=== PATIENT | male | born 1940 | race Caucasian/White ===

== ENCOUNTER 2016-05-14 12:41 | Inpatient (IN) | payer MEDICARE, OTHER ==
[~2016-05-14] VITALS: Ht 175.3 cm; Wt 96.8 kg
--- NOTE | ~2016-05-14 | OR ---
PATIENT'S NAME: JOCELYN LOPEZ [facility] AGE: 75 Y [address] ROOM: [address] [place] [address] LOCATION: GICU ADMIT DATE: 05/14/2016 OR/Procedure Report DISCHARGE DATE: 05/21/2016 FAMILY PHYSICIAN: Physician, Unknown ATTENDING PHYSICIAN: Faustino Haynes SURGEON: Faustino Haynes DO TITLE I COORDINATOR: DATE OF PROCEDURE: 05/14/2016 REFERRING PHYSICIAN: Dr. Mary Farias. PREOPERATIVE DIAGNOSIS: Ischemic and nonischemic cardiomyopathy with need for epicardial left ventricular lead, status post failed attempt at transvenous placement of left ventricular lead. SECONDARY DIAGNOSES: Include: 1. Chronic atrial tachycardia. 2. Stage V dialysis-dependent renal failure. 3. History of coronary artery disease. POSTOPERATIVE DIAGNOSIS: Ischemic and nonischemic cardiomyopathy with need for epicardial left ventricular lead, status post failed attempt at transvenous placement of left ventricular lead. PROCEDURE PERFORMED: Left anterior thoracotomy with placement of left ventricular lead and connection to existing biventricular implantable cardioverter-defibrillator generator in the right subclavian area. BRIEF HISTORY: Mr. Lopez is a 75-year-old white male with the above-noted diagnosis. On of this week in [place], he underwent an attempt at placement of BiV-ICD. It had to be done via the right subclavian system secondary to his preexisting fistula in the left subclavian system. Dr. Farias spent a long day attempting the LV lead placement. She was successful with the RA and RV leads; however, secondary to tortuosity and right-sided placement, was unable to place the LV lead. He was transferred on Tuesday after dialysis. DESCRIPTION OF PROCEDURE: He has been brought to the operative suite for placement of his LV lead. He was sterilely prepped and draped in the usual fashion for left anterior thoracotomy and intubated. An incision was created in the inframammary crease, and we entered the pericardial space. The heart was grossly enlarged with the apex reaching the lateral chest wall. The patient was status post coronary artery bypass grafting. There was a large amount of adhesive disease from the lungs; however, it was taken down without difficulty. The pericardial sac was opened. The LV lead was placed. It took PATIENT'S NAME: JOCELYN LOPEZ [facility] AGE: 75 Y [address] ROOM: [place] [address] LOCATION: GICU ADMIT DATE: 05/14/2016 OR/Procedure Report DISCHARGE DATE: 05/21/2016 FAMILY PHYSICIAN: Physician, Unknown ATTENDING PHYSICIAN: Faustino Haynes 3 separate positioning to find adequate sensing and pacing, but we were able to achieve waveforms measuring 5.9 mV with an LV threshold of 1.4 V at 0.5 msec with a pacing impedance of 597 ohms. The lead was then tunneled subcutaneously to the right subclavian vein system and connected without difficulty. This incision had been opened. Generator leads were removed. Tunnel was connected to the pocket, the leads and generator were placed back into the pocket, and this incision was closed. Appropriate sensing and BiV pacing was noted. Through a separate stab incision, a 19-Slovak Walt drain was brought through and placed into the pleural space. The intercostal incision was approximated with a single 0 Ethibond. Muscular layers closed with running 0 Vicryl. Skin and soft tissue closed with 4-0 and 2-0 Vicryl respectively. Chest tube was placed to suction. The patient was extubated and transferred to the recovery room in stable condition. DO KAREN CORTEZ/modl /[id number] d: 05/28/16 1729 t: 05/29/16 1141, OPERATIVE SUMMARY
--- NOTE | ~2016-05-14 | DS ---
PATIENT'S NAME: JOCELYN LOPEZ [facility] AGE: 75 Y [address] ROOM: [address] [place], [place] [address] LOCATION: [facility] ADMIT DATE: 05/14/2016 Discharge Summary DISCHARGE DATE: 05/21/2016 FAMILY PHYSICIAN: Physician, Unknown ATTENDING PHYSICIAN: Faustino Tejada SUMMARY DATE OF EXPIRATION: 05/21/2016. HISTORY AND HOSPITAL COURSE: Mr. Lopez was a 75-year-old chronically ill male, who was transferred to [facility] for placement of his LV lead. We took him to surgery on 05/14/2016 and accomplished this without difficulty. Postoperatively, hypotension was his biggest issue along with some hypoxia. He did require BiPAP support and support of his pressure with Jose Antonio-Synephrine. Nephrology followed along. He was dialyzed daily for the first 2 days to get him on a Tuesday, Tuesday, and Tuesday schedule. He was continued to be about 4 kg up. We were able to wean his BiPAP to 4 L of nasal cannula. By day 3, he was still acquiring Jose Antonio-Synephrine, and I proceeded with a workup for adrenal insufficiency and thyroid dysfunction. His thyroid was negative, but his cortisol levels were markedly low. He was initiated on IV Solu-Medrol and oral Florinef, and over the next 2 days, we were able to wean off the Jose Antonio- Synephrine. He was continuing to dialyze. We had initially made plans for transfer on Tuesday to the [facility] bed in [place], but it was felt that we should dialyze him through the weekend and then transfer on Tuesday. On 05/21/2016, he dialyzed without difficulty, was down to 1 L of oxygen, was ambulatory with physical therapy. His Eliquis and Plavix had been restarted as per his home dose. Approximately at 6:00 p.m. on the evening of 05/21/2016, he had a marked increase in his shortness of breath. His weight was still approximately 4 kg up, and he began having small episodes of hemoptysis. BiPAP was initially tried, however, this really did not decrease his work of breathing, and he and I talked and we planned for elective intubation. We did speak with his over the phone as she was in the [place] secondary to a in the family. He was intubated without difficulty. Pressures tolerated it well, and his oxygen saturations matthew markedly. We then began having difficulties with suctioning blood from the tube. It was an atraumatic intubation, and concern by me was felt for possible acute pulmonary embolism. Unfortunately, within about 15 minutes of intubation, he had a code blue arrest with ventricular tachycardia. He was resuscitated by ACLS protocols, and we were able to gain a pulse. He was on the epinephrine drip. Hemoptysis became much more of a significant problem, and he was coded again, and this time could not be resuscitated. We presumably felt that he had an acute pulmonary embolism as his post dialysis and labs drawn from the code showed his potassium to be 4. The patient's family were notified of the . Autopsy was refused, and the patient PATIENT'S NAME: JOCELYN LOPEZ [facility] AGE: 75 Y [address] ROOM: [place] [address] LOCATION: [facility] ADMIT DATE: 05/14/2016 Discharge Summary DISCHARGE DATE: 05/21/2016 FAMILY PHYSICIAN: Physician, Unknown ATTENDING PHYSICIAN: Faustino Tejada on 05/21/2016. FAUSTINO TEJADA DO MCB/modl /[id number] d: 05/28/16 2309 t: 05/29/16 1146, DISCHARGE SUMMARY
--- NOTE | ~2016-05-14 | CON ---
PATIENT'S NAME: JOCELYN LOPEZ [facility] AGE: 75 Y [address] ROOM: [address] [place], [place] [address] LOCATION: GICU ADMIT DATE: 05/14/2016 Consultation DISCHARGE DATE: FAMILY PHYSICIAN: PHYSICIAN, UNKNOWN ATTENDING PHYSICIAN: Faustino Haynes DATE OF CONSULTATION: 05/15/2016 REFERRING PHYSICIAN: BRANDON TANNER REASON FOR CONSULTATION: ESRD, evaluation for the need for renal replacement therapy. HISTORY OF PRESENT ILLNESS: A 75-year-old male patient with history of hypertension for at least 15 years; diabetes since age 28, currently on insulin therapy; coronary artery disease, status post PCI and later CABG in 2013; ESRD, presumably from diabetic nephropathy, currently on chronic in-center hemodialysis as per TTS schedule; recently got admitted at [facility] for PPI placement; however, the procedure becomes complicated, and the patient was transferred here for further management. Nephrology consultation has been called for ESRD management. During my evaluation, although the patient was TTS schedule but got an extra session of dialysis yesterday at the outside hospital for 3 hours for presumed volume overload. We do not know how much ultrafiltrate we opted at that time; however, at night, the patient was hypotensive and has been started on vasopressor support. Currently, blood pressure is in the 90s/50s, does not appear to be overtly volume overloaded. Biochemical parameters are within normal limits. The patient reports frequent intradialytic hypotension at the outpatient dialysis unit, but however, the patient is not on midodrine or any other support for maintaining blood pressure during hemodialysis. The patient denied any chest pain, shortness of breath at this point. No significant pedal edema or orthopnea or PND. Makes about a cup of urine a day. However, denied any urinary symptoms including dysuria, hematuria, or urinary frequency. No nausea, vomiting, or diarrhea. The patient's respiratory status and cardiopulmonary stress seems to be acceptable. REVIEW OF SYSTEMS: GENERAL: No fever. No chills or rigor. HEENT: No sore throat. No sinus congestion. CVS: No chest pain. No exertional shortness of breath. No leg swelling. RESPIRATORY: No shortness of breath. No cough. No wheezing. GENITOURINARY: No pain with urination. No increased frequency. No nocturia. GASTROINTESTINAL: No abdominal pain. No abdominal distention. No nausea or vomiting. NEUROLOGIC: No weakness. No seizures. SKIN: No rash. No itching. ALLERGIES: No seasonal allergy. No hayfever. ENDOCRINE: No heat intolerance. No cold intolerance. PSYCHIATRIC: No sadness. No crying spells. No history of panic attack.PATIENT'S NAME: JOCELYN LOPEZ [facility] AGE: 75 Y [address] ROOM: [address] [address] LOCATION: [facility] ADMIT DATE: 05/14/2016 Consultation DISCHARGE DATE: FAMILY PHYSICIAN: PHYSICIAN, UNKNOWN ATTENDING PHYSICIAN: Faustino Haynes He is getting U he was on used to be a is a I believe stress is high no is he was having CVS is had a high and he was having just is 1 at least once a year evaluated calcified I as well as he I advised he by mouth daily short of breath but he he a he is he is he he he is he is a he is. Will 52 is a to Zi he was a pain a a a is on a is a black eye he PAST SURGICAL HISTORY: 1. PCI in 2013. 2. CABG in 2013. SOCIAL HISTORY: Lives with family. No history of significant alcohol consumption or IV drug abuse. Used to be a former smoker, stopped long time ago. FAMILY HISTORY: Significant family history of diabetes and coronary artery disease in the family in both parents. No significant history of renal failure or CKD. ALLERGIES: MORPHINE, OXYCODONE, AND ACETAMINOPHEN. HOME MEDICATIONS: 1. Tylenol extra-strength 1000 mg p.o. q.4 hours p.r.n. for pain. 2. Allopurinol 300 mg p.o. daily. 3. Eliquis 5 mg p.o. b.i.d. 4. Lipitor 20 mg p.o. q.h.s. 5. Rocaltrol 0.25 mcg capsule p.o. at noon. 6. Clopidogrel 75 mg tablet p.o. daily. 7. Docusate 100 mg p.o. daily p.r.n. for constipation. 8. Doxycycline 100 mg capsule p.o. daily p.r.n. for rash. 9. Famotidine 40 mg tablet p.o. b.i.d. 10. Folic acid 2 mg p.o. daily. 11. Hydrocodone/acetaminophen combination 1 tablet p.o. q.8 hours p.r.n. 12. Metoprolol tartrate 12.5 mg p.o. at q.h.s. 13. Nitroglycerin 0.4 mg sublingual p.r.n. for chest pain. 14. MiraLAX powder 17 g p.o. daily. 15. Ursodiol 300 mg capsule p.o. daily. 16. Vitamin B complex, folic acid, vitamin C, biotin 1 tablet p.o. daily. PATIENT'S NAME: JOCELYN LOPEZ [facility] AGE: 75 Y [address] ROOM: [place] [address] LOCATION: [facility] ADMIT DATE: 05/14/2016 Consultation DISCHARGE DATE: FAMILY PHYSICIAN: PHYSICIAN, UNKNOWN ATTENDING PHYSICIAN: Faustino Haynes PHYSICAL EXAMINATION: VITAL SIGNS: Blood pressure in 90s/50s, pulse 100, respiratory rate 18, temperature 98.1. Saturation 98% to 100% on 2 L. GENERAL: Not in apparent distress. HEENT: No JVD or thyromegaly. CVS: S1, S2 normal, RRR. No murmur, rub, gallop. RESPIRATORY: Bilateral air entry equal. No rales or wheeze. ABDOMEN: Soft, nontender, nondistended. Bowel sounds positive. EXTREMITIES: No cyanosis, clubbing, or jaundice. The left arm has an AV fistula. There is significant bruits and swelling because of AVF. History of placement of a venous catheter in the same arm at an outside hospital. SKIN: No pallor, icterus, cyanosis. PRODUCTION CONTROL PLANNER: No gross findings. LABORATORY STUDIES: CBC, hemoglobin 13.3, WBC 8.3, platelets 75. Chemistry, sodium 136, potassium 5, bicarbonate 20, BUN 38, creatinine 4.6, albumin 2.4. LFT, AST 56, ALT 29, alkaline phosphatase 154, total bilirubin 0.4. INR 1.1. ASSESSMENT AND PLAN: 1. End-stage renal disease, possibly secondary to diabetic nephropathy, currently on in-center hemodialysis, scheduled TTS. Access left arm AV fistula. Got dialyzed yesterday for next assessment for presumed volume overload, however, currently on assessment. The patient is euvolemic, probably a little bit hypovolemic, currently on vasopressor support for maintenance of blood pressure. We do not see any urgent indication either clinically or biochemically to dialyze over the weekend. We will continue to monitor him closely with a repeat renal panel every day. Plan to dialyze on Tuesday tentatively, and we will change to TTS schedule at the time of discharge. 2. Access issue. The patient had a left arm venous catheter placement which also has AV fistula. Now, the left arm is swollen and bruised. We will put some cold compress, and we will try to avoid using the AV fistula for at least the next 24 to 48 hours. The AVF still has some positive bruit and thrill. Hopefully, we will be able to use it on the next dialysis session. 3. Coronary artery disease. Stable currently. Denied any chest pain. Continue home medication. 4. Atrial fibrillation. On chronic anticoagulation with Eliquis. Continue Eliquis at this point. Although the patient is on atrial fibrillation, the patient recently had a PPI placement. 5. Complicated procedure while placement of a permanent pacemaker. The patient got right lead placed at the outside hospital, left lead was placed here by Dr. Haynes. The procedure went smoothly and currently has no complication. We will defer that to the CT surgery for further management. Thank you for allowing me for participating in this patient's care. We will closely monitor the patient's progress along with you. HISEKH DELMER TANNER MD /modl /[id number] There is mild to is a a is sure he d: 05/15/162019 t: 05/17/16 1554, CONSULTATION REPORT
--- NOTE | ~2016-05-14 | HP ---
PATIENT'S NAME: JOCELYN LOPEZ [facility] AGE: 75 Y [address] ROOM: [place] [address] LOCATION: GICU ADMIT DATE: 05/14/2016 History & Physical DISCHARGE DATE: 05/21/2016 FAMILY PHYSICIAN: , Unknown ATTENDING PHYSICIAN: Faustino Tejada DATE OF SERVICE: CHIEF COMPLAINT AND HISTORY: Mr. Lopez is a 75-year-old white male who has a history of nonischemic and ischemic cardiomyopathy. He has been medically managed by guideline-directed medical therapy and was taken to the general production laborer in [facility] in [place] for placement of his BiV-ICD device; however, secondary to his right-sided placement necessitated by his left arm fistula and tortuosity of the access of the coronary sinus, the lead could not be placed transvenously and he was transferred to [facility] for placement of an LV lead. He is prepared for surgery by undergoing dialysis this morning and will be taken to the operative suite this afternoon. PAST MEDICAL HISTORY: Significant for coronary artery disease, status post coronary artery bypass grafting; chronic congestive heart failure; ischemic and nonischemic cardiomyopathy with gross cardiomegaly; severe pulmonary hypertension; diabetes; dialysis-dependent renal failure; gastroesophageal reflux disease; and paroxysmal atrial fibrillation, chronic anticoagulation with Eliquis. SOCIAL HISTORY: He is a former smoker and quit cigarette use 5 years prior. Dialyzes on Tuesdays, , and Saturdays. ALLERGIES: PERCOCET AND MORPHINE WHICH CAUSE MORE OF AN ADVERSE DRUG REACTION THAN TRUE ALLERGIES. MEDICATIONS: His current home medications are: 1. Digoxin 250 mg daily 3 times a week. 2. Metoprolol tartrate 25 mg one-half tablet orally b.i.d. 3. Plavix 75 mg daily. 4. Nitrostat sublingual p.r.n. 5. Allopurinol 300 mg daily. 6. Protonix 40 mg daily 3 times a week. 7. Renagel 800 mg orally daily and p.r.n. with a snack. 8. Renagel 800 mg 3 tablets orally t.i.d. 9. Folic acid 1 mg tablet 2 tablets daily. PATIENT'S NAME: JOCELYN LOPEZ [facility] AGE: 75 Y [address] ROOM: [place] [address] LOCATION: GICU ADMIT DATE: 05/14/2016 History & Physical DISCHARGE DATE: 05/21/2016 FAMILY PHYSICIAN: Physician, Unknown ATTENDING PHYSICIAN: Faustino Tejada 10. Magnesium supplement one tablet daily. 11. Aspirin 81 mg daily. 12. Rocaltrol 0.25 mg daily. 13. Ferrous sulfate 325 mg one tablet b.i.d. 14. Ursodiol 300 mg one tablet daily. 15. Tylenol p.r.n. REVIEW OF SYSTEMS: As per the History and Past Medical History and otherwise unchanged. PHYSICAL EXAMINATION: GENERAL: An alert and oriented white male, appears older than his stated age. VITAL SIGNS: He is in a ventricular paced rhythm at this time on telemetry. Blood pressures are moderately low with systolics in the 90s. He is on 1 L of oxygen at this time. CHEST: Previous sternal incision and a recent right infraclavicular incision from his BiV-ICD. HEART: Irregularly irregular with an S3 gallop. LUNGS: Diminished in the bases bilaterally. ABDOMEN: Obese and nontender. Bowel sounds are positive. EXTREMITIES: Gross edema of the left extremity. He does have a thrill, although weak, in his fistula. He has recent access bandages noted. Otherwise, his extremities show evidence of edema, left upper extremity the worst. Significant bronzing from venous stasis. NEUROLOGIC: Cranial nerves 2 through 12 are grossly intact. He is alert and oriented x3. IMPRESSION: 1. Chronic congestive heart failure from dilated and nondilated cardiomyopathy. 2. End-stage stage V renal disease, hemodialysis dependent. 3. History of coronary artery disease. 4. Diabetes. 5. Chronic obstructive pulmonary disease. 6. Hypotension. PLAN AND RECOMMENDATIONS: He will be taken to the operative suite this afternoon for placement of his LV lead. We will ask Dr. Marte from Nephrology to follow along with us for his dialysis needs. FAUSTINO TEJADA DO PATIENT'S NAME: JOCELYN LOPEZ [facility] AGE: 75 Y [address] ROOM: [place] [id number] LOCATION: [facility] ADMIT DATE: 05/14/2016 History & Physical DISCHARGE DATE: 05/21/2016 FAMILY PHYSICIAN: Héctor Alvarez ATTENDING PHYSICIAN: Faustino Tejada/bernabe /[id number] D: [id number] T: 143 HISTORY & PHYSICAL
[~2016-05-14 12:41] MED LIST: ACTIGALL300 M1 PO; DOXYCYCLINE100 MG PO; ELIQUIS5 MG PO; FOLIC ACID1 MG PO; HYDROCODON-ACE1 EAC4 PO; LIPITOR20 M1 PO; LOPRESSOR25 MG PO; NITROSTAT0.4 MG SL; PEPCID40 MG PO; PLAVIX75 MG PO; RENA-VITE RX T1 EACH PO; ROCALTROL0.25 MCG PO; STOOL SOFTENER100 M1 PO; TYLENOL EXTRA500 MG PO; ZYLOPRIM300 MG PO
[2016-05-14] MEDS ORDERED: MIRALAX PO527 GM/BOT PO (14:23)
[2016-05-14 14:58] LABS: BASOPHIL # 0.1 K/uL (0.0-0.2); BASOPHIL % 0.6 %; EOSINOPHIL # 0.1 K/uL (0.0-0.5); EOSINOPHIL % 1.1 %; HEMATOCRIT 41.5 % (37.0-53.0); HEMOGLOBIN 13.3 g/dL (11.0-16.0); IMMATURE GRANULOCYTE % 0.5 %; LYMPHOCYTE # 0.6 K/uL (0.8-4.0); LYMPHOCYTE % 6.6 %; MCH 35.6 pg (27.0-34.0); MONOCYTE # 0.7 K/uL (0.0-1.0); MONOCYTE % 7.9 %; NEUTROPHIL # (ANC) 6.9 K/uL (1.4-9.0); NEUTROPHIL % 83.3 %; NRBC % 0 /100WBC (0-0.00); PLATELET COUNT 75 K/uL (150-450); RBC 3.74 M/uL (3.50-5.50); RDW-CV 15.6 % (11.9-14.6); WBC 8.3 K/uL (4.0-11.0)
[2016-05-14 15:01] LABS: INR - (THERAPEUTIC) 1.1 (0.9-1.1); PROTIME 11.7 SECONDS (9.6-11.1)
[2016-05-14 15:17] LABS: ALBUMIN 2.4 gm/dL (3.5-5.0); TOTAL BILIRUBIN 0.6 mg/dL (0.0-1.5); TOTAL PROTEIN 6.1 g/dL (6.0-8.4)
[2016-05-14 15:27] LABS: CREATININE 4.6 mg/dL (0.6-1.3)
--- NOTE | 2016-05-15 05:41 | NUR ---
Patient A/Ox3. C/o L) CT site and back pain which is relieved by morphine pushes. Titrated from 2.0 mcg/kg/min of Jose Antonio to 0.8 mcg/kg/min throughout shift. Titrated off Bipap to 1L NC with 02 sats in mid 90s. No UOP throughout shift, No BM. L) SC triple lumen started during shift with no complications. Follow up: Address dietary needs as patient is currently NPO. Continue to wean Jose Antonio.
--- NOTE | 2016-05-15 17:40 | NUR ---
SIGNIFICANT EVENT: PATIENT ALERT, ORIENTED X3. OPENS EYES SPONTANEOUSLY AND TO VOICE. PUPILS EQUAL AND REACTIVE. SPEECH IS CLEAR. NO FACIAL ASYMMETRY. PATIENT DOES COMPLAIN OF PAIN IN L) CHEST TUBE AREA, RELIEF NOTED FROM NORCO. AVAILABLE EVERY 4 HOURS. PATIENT IS CONVERSATIONALLY APPROPRIATE. PATIENT MOVES ALL 4 EXTREMITIES SPONTANEOUSLY AND TO COMMANDS. GENRALIZED WEAKNESS, EQUAL STRENGTH THROUGHOUT. PATIENT UP TO CHAIR X1, AMBULATED IN ROOM MULTIPLE TIMES THROUGHOUT THE SHIFT. PATIENT HAS BEEN IN AFIB RHYTHM, HR 90-100S. PATIENT CONTINUES TO REQUIRE EFREN FOR BP SUPPORT, EFREN GTT AT 1.6 MCG/KG/MIN TO KEEP SBP>90 AND MAP>70. SBP 90S, MAP BORDERLINE OF 70. PULSES PALPABLE THROUGHOUT. L) UPPER EXTREMITY IN COLD COMPRESSION PER MD ORDER, EDEMATOUS IN L) EXTREMITY. AFEBRILE. PATIENT ON 1L NASAL CANNULA TO KEEP SATS >90. L) CHEST TUBE INTACT, NO CREPTUS NO COMPLICATIONS. TO SUCTION. 100 ML OUTPUT. BOWEL SOUNDS ACTIVE, NO BM TODAY. ABDOMEN SLIGHTLY FIRM AND DISTENDED, MD AWARE. CARDIAC AND RENAL DIET. NO URINE OUTPUT. NO NEW SKIN ISSUES NOTED. BATH COMPLETED THIS SHIFT. PATIENT STOOD AT BESIDE AT LEAST HOURLY FOR REPOSITIONING WHILE IN CHAIR. R) SUBCLAVIAN INFUSING EFREN GTT. FOLLOW UP: CONTINUE TO MONITOR AND WEAN EFREN GTT.
[2016-05-15 18:48] LABS: HEMATOCRIT 41.7 % (37.0-53.0); HEMOGLOBIN 13.1 g/dL (11.0-16.0)
[2016-05-16 04:41] LABS: ALBUMIN 2.6 gm/dL (3.5-5.0); CALCIUM 8.2 mg/dL (8.5-10.5)
[2016-05-16 04:44] LABS: CREATININE 6.5 mg/dL (0.6-1.3)
[2016-05-16 04:45] LABS: PHOSPHORUS 8.7 mg/dL (2.5-4.9)
--- NOTE | 2016-05-16 05:10 | NUR ---
Significant Event: Pt is alert and orineted x3, can be forgetful at times. Pupils are equal and reactive. Denies any numbness or tingling. Moves all extremities spontaneously and to command. Pt has remained on Jose Antonio gtt for blood pressure support. Albumen given x1. 60ml of drainage out of the chest tube. No crepitus at site. Cold compress intermitently to the L) arm, 2-3 + edema in this arm. Follow up: Ween off Jose Antonio
[2016-05-16 13:32] LABS: ALBUMIN 3.2 gm/dL (3.5-5.0); CALCIUM 7.9 mg/dL (8.5-10.5); PHOSPHORUS 8.9 mg/dL (2.5-4.9)
[2016-05-16 13:34] LABS: ANION GAP 23.7 (10.0-19.0); CREATININE 6.8 mg/dL (0.6-1.3); POTASSIUM 5.7 mMol/L (3.7-5.1)
--- NOTE | 2016-05-16 17:04 | NUR ---
SIGNIFICANT EVENT: PATIENT ALERT, ANSWERS ALL ORIENTATION QUESTIONS APPROPRIATELY. PATIENT HAS BEEN OPENING EYES SPONTANEOUSLY AND TO VOICE. PUPILS EQUAL AND REACTIVE. PATIENT HAS SOME FORGETFUL AND CONFUSED COMMENTS, RE-ORIENTS EASILY. PATIENT MOVES ALL 4 EXTREMITIES SPONTNAEOUSLY AND TO COMMANDS, GENERALIZED WEAKNESS BUT EQUAL STRENGTH THROUGHOUT. PATIENT COOPERATIVE WITH ALL CARES. PATIENT COMPLAINS OF OCCASIONAL L) SIDED, CHEST TUBE AREA PAIN/ DISCOMFORT, RELIEF NOTED FROM NORCO AND FREQUENT REPOSITIONING. PATIENT AMBULATES WITH 1 PERSONA ASSISTANCE AND GAITBELT. UNSTEADY GAIT. PATIENT IN PACED RHYTHM. HR 80-110S. PULSES PALPABLE THROUGHOUT, THREADY IN LOWER EXTREMITIES. EFREN GTT MAXED AT 2 MCG/KG/MIN ATTEMPTED TO TITRATE MULTIPLE TIMES THROUGHOUT THE SHIFT FOR SBP>90 AND MAP>70. L) UPPER EXTREMITY EDEMATOUS, COLD COMPRESSION ON THROUGHOUT THE SHIFT. AFEBRILE. PATIENT DENIES ANY CHEST PAIN, NUMBING, OR TINGLING. PATIENT CURRENTLY ON 6L NASAL CANNULA TO KEEP SATS >90. SPONT COUGH, OCCASIONAL WHITE THICK SECRETIONS. L) CHEST TUBE INTACT, 110 ML OUTPUT. NO COMPLICATIONS NO CREPITUS. PATIENT ON RENAL DIET, DECREASED APPETITE NOTED. BOWEL SOUNDS PRESENT, NO BM. PATIENT VOIDED 1 INCONT VOID (SMALL) AND 50 ML VOID. NO NEW SKIN ISSUES NOTED. PATIENTE REPOSITIONED FREQUENTLY. BATH COMPLETED THIS SHIFT. POTASSIUM 6 THIS AM, SEE CHART ORDERS FOR ORDERS TOO ATTEMPT TO DECREASE K, LAST CHECKED POTASSIUM LEVEL WAS 5.7, DR TANNER AND DR TEJADA AWARE FOLLOW UP: DIALYSIS IN AM. CONTINUE TO MONITOR
--- NOTE | 2016-05-17 04:52 | NUR ---
Significant Event: A/O, APPROPRIATELY MOST OF THE NIGHT. CONTINUES WITH PACED RHYTHM. CLARIFIED WITH DR. TEJADA ABOUT PACER SPIKE ON OR AFTER QRS, WILL CONTINUE TO WATCH. WEANED LEVO DOWN TO 1.6MCG/KG/MIN. 6L O2, BIPAP OVERNIGHT. WEANED TO 30% FIO2. LUNG SOUNDS MORE CLEAR TOWARD AM. CHEST TUBE TO WATER SEAL. 60ML SERO/SANG OUT OF CHEST TUBE. NO BM OR VOID OVERNIGHT. DENIES PAIN. BATH COMPLETE. TURNED Q2HR. SOLUMEDROL AND FLORINEF STARTED. Follow up: [facility]IVITY.
[2016-05-17 06:01] LABS: ALBUMIN 2.8 gm/dL (3.5-5.0); CALCIUM 8.2 mg/dL (8.5-10.5)
[2016-05-17 06:02] LABS: ANION GAP 22.3 (10.0-19.0); CREATININE 7.5 mg/dL (0.6-1.3); POTASSIUM 6.3 mMol/L (3.7-5.1)
[2016-05-17 06:03] LABS: PHOSPHORUS 8.5 mg/dL (2.5-4.9)
--- NOTE | 2016-05-17 13:07 | NUR ---
Introduced self and role of care management to pt's . THey live in [place] in there own place. She states prior to admission he was up with a cane and driving himself to and from dialysis in [place] on starting around 10 am. She states she sets up his meds for him but other than that he is independent. They do have 3 children in the area as well. She is staying at the [facility]. WIll continue to follow and assist with dc plans.
--- NOTE | 2016-05-17 14:36 | NUR ---
ASSUMED CARES FROM MAYKEL MCCRACKEN AT 1415.
--- NOTE | 2016-05-17 16:14 | NUR ---
Significant Event: : Hemodialysis today. 600 ml off. 2 of albumin given. GI: No BM. Active bowel sounds. Good appetite. CARDIO: Neosynephrine at 1.4 mcg/kg/min to keep MAP at 70 mmHg. RESP: 4L NC. SaO2 90-91%. TRANS: 2PA to chair. NEURO: Forgetful and confused at times but alert and oriented x 3. Follow up: Hemodialysis on 05/18
--- NOTE | 2016-05-18 02:04 | NUR ---
Significant Event: Patient is A/Ox3. Confused statements at times but reorients easily. Paced. HR's 80's-90's. 2+ edema. Jose Antonio to keep Maps greater than 70 at 1.4mcg/kg/min. Currently on 4L NC. O2 sats greater than 91%. Slightly coarse/fine crackles and diminished in the bases. Low UOP. HD 05/18/16. No BM during shift. Afebrile. NO PRN's given. Calm and cooperative throughout the night. 2 person assist. Follow up: Hemodiaylsis/wean jose antonio.
[2016-05-18 03:54] LABS: ALBUMIN 2.9 gm/dL (3.5-5.0); CALCIUM 8.3 mg/dL (8.5-10.5); PHOSPHORUS 6.5 mg/dL (2.5-4.9)
[2016-05-18 03:55] LABS: ANION GAP 18.9 (10.0-19.0); POTASSIUM 4.9 mMol/L (3.7-5.1)
[2016-05-18 03:56] LABS: CREATININE 5.4 mg/dL (0.6-1.3)
--- NOTE | 2016-05-18 14:05 | NUR ---
Significant Event: Alert and oriented to self and time, disoriented to place. PERRLA. Forgetful. PERRLA. Hemodialysis done today, 1.8 L off, fistula to L) arm. Jose Antonio to keep map > 70 currently on 0.7 mcq/kg/min. Generalized edema. 4L NC. Renal diet. Moderate bm today. Oliguria. L) subclavian central line intact. Transfers 1 assist to chair/commode. Pacemaker to R) chest. L) chest tube removed by Dr. Haynes dressing C/D/I. Cooperative with cares. Follow up: wean Jose Antonio.
--- NOTE | 2016-05-19 05:05 | NUR ---
PT A/O X3, FORGETFUL AT TIMES, BUT REORIENTS SELF MOST OCCASIONS. PERRL, FOLLOWS COMMANDS, EQUAL STRENGTH BILATERALLY, GENERALIZED WEAKNESS. ONE PERSON ASSIST WHEN TRANSFERRING. PACED RHYTHM. HYPOTENSIVE WITH EFREN RUNNING AT 0.2 MCG/KG/MIN AT THIS TIME. ATTEMPTS TO WEAN OFF UNSUCCESSFUL THIS SHIFT. REMAINS ON 4L NC THIS SHIFT. OCCASIONAL DESATURATIONS WHILE ASLEEP DUE TO MOUTH-BREATHING. LUNG SOUNDS COARSE TO CRACKLES. BM X1 THIS SHIFT. REMAINS OLIGURIC. SEE FLOWSHEET FOR SKIN ISSUES. CVL REMAINS INTACT AND PATENT. FREDERICK CASAS RN
[2016-05-19 05:15] LABS: ALBUMIN 3.1 gm/dL (3.5-5.0); ANION GAP 16.3 (10.0-19.0); CALCIUM 8.4 mg/dL (8.5-10.5); PHOSPHORUS 6.4 mg/dL (2.5-4.9); POTASSIUM 4.3 mMol/L (3.7-5.1)
[2016-05-19 05:18] LABS: CREATININE 4.5 mg/dL (0.6-1.3)
--- NOTE | 2016-05-19 08:22 | NUR ---
A - PT SCREENED D/T LOS. LABS: GLU 172, BUN/SIGNAL OPERATOR LINGUIST 56/4.5, ALB 3.1, PO4 6.4. PT ON HEMODIALYSIS. DIET: RENAL W/ 1500 ML FLUID RESTRICTION. INTAKE 50-100%; HOWEVER, ONLY TWO MEALS PER DAY DOCUMENTED. D - AT RISK W/ INCREASED NUTRIENT NEEDS R/T ESRD AEB HEMODIALYSIS. I - GOAL: 75% OR BETTER INTAKE BY DISMISSAL. M/E - WILL OFFER ENSURE W/ BF, MAGIC CUP W/ LUNCH, AND ENSURE PUDDING W/ DINNER AND CONT TO MONITOR ORAL INTAKE.
--- NOTE | 2016-05-19 15:14 | NUR ---
Attempted to see pt a couple times today and now has visitors. Will continue to follow.
--- NOTE | 2016-05-19 17:41 | NUR ---
Significant Event: Patient is A&O X3, forgetful at times, patient will reorient self pretty quickly. SBP have been 70's-120's, MAP's 50's-80's, HR 70's-80's. Jose Antonio is running at 0.4mcg/kg/min. Had Jose Antonio off at 1020, had to restart Jose Antonio when patient was getting hemodilysis. Patient is on 4L NC with o2 sats mid to upper 90's. Lung sounds are slightly coarse to diminished in the bases. Patient is a 2 emagan to the commode. Follow up:
--- NOTE | 2016-05-20 05:07 | NUR ---
PATIENT RESTING THROUGHOUT SHIFT. A/OX3, FORGETFUL AT TIMES, PLEASANT, COOPERATIVE. AFIB WITH PACED BEATS ON MONITOR. EFREN TURNED OFF AT 0323 AND PATIENT REMAINS NORMOTENSIVE. CURRENT BP 103/59 (74). INCREASED COUGHING NOTED TODAY. WITH COUGHING EPISODES, PATIENT DESATS AND HAS DIFFICULTY CATCHING BREATH. INCREASED PVCS ALSO NOTED WHEN PATIENT HAVING COUGHING EPISODE. DRESSING TO PREVIOUS CHEST TUBE SITE CHANGED X3 THIS SHIFT DUE TO INCREASED DRAINAGE WHEN PATIENT IS COUGHING. NO BM THIS SHIFT. NO URINE OUTPUT THIS SHIFT. SKIN ASSESSMENT REMAINS UNCHANGED. CVL REMAINS INTACT AND PATENT; CAPS CHANGED THIS SHIFT. FREDERICK CASAS RN
[2016-05-20 05:20] LABS: ALBUMIN 3.3 gm/dL (3.5-5.0); ANION GAP 15.1 (10.0-19.0); CALCIUM 8.2 mg/dL (8.5-10.5); CREATININE 3.6 mg/dL (0.6-1.3); PHOSPHORUS 5.8 mg/dL (2.5-4.9); POTASSIUM 4.1 mMol/L (3.7-5.1)
--- NOTE | 2016-05-20 16:09 | NUR ---
Significant Event: Patient is A&O X3, forgetfull at times, follows all commands. Pupils are equal and reactive. SBP have been mid 90's-one teens, MAP's upper 60's-90's, HR have been 70's-90's. Patient is on 2L NC with o2 sats mid to upper 90's. Lung sounds are slightly coarse and diminished in the bases. Patient is a 1-2 assist to the BR. Follow up:
--- NOTE | 2016-05-21 04:23 | NUR ---
Significant Event: Patient alert and oriented but forgetful. Pressures 100s-120s/40-60s with MAPs 60-80s. Rates 70-90s. 2L oxygen. Productive cough continues. [place] given x1 with relief noted. Fistula to left upper arm with thrill and bruite noted. Patient has not slept much this shift. Pleasant and cooperative with cares. Follow up: Continue plan of care.
[2016-05-21 04:35] LABS: ANION GAP 16.4 (10.0-19.0); CALCIUM 8.6 mg/dL (8.5-10.5); PHOSPHORUS 6.5 mg/dL (2.5-4.9); POTASSIUM 4.4 mMol/L (3.7-5.1)
[2016-05-21 04:38] LABS: CREATININE 4.7 mg/dL (0.6-1.3)
--- NOTE | 2016-05-21 16:42 | NUR ---
Significant Event: Alert and oriented but forgetful. Vital signs stable. Continues on 1-2L O2/NC. Orders received for PCU transfer this AM. Up in room with 2PA, walker, and gait belt. Off unit for dialysis much of the day. Pleasant and cooperative. Follow up: continue
[2016-05-21 22:33] LABS: HEMATOCRIT 38.4 % (37.0-53.0); HEMOGLOBIN 12.3 g/dL (11.0-16.0); MCH 35.8 pg (27.0-34.0); MCV 111.6 fl (83.0-98.0); MPV 12.1 fl (9.4-12.4); RBC 3.44 M/uL (3.50-5.50); RDW-CV 15.5 % (11.9-14.6); WBC 8.8 K/uL (4.0-11.0)
[2016-05-21 22:34] LABS: BICARBONATE 27.2 mmol/L (18.0-23.0); PO2 55 mmHg (80-90)
[2016-05-21 22:34] LABS: PLATELET COUNT 47 K/uL (150-450)
[2016-05-21 22:38] LABS: PCO2 80 mmHg (35-45)
[2016-05-21 22:43] LABS: PTT 35 SECONDS (25-32)
[2016-05-21 22:44] LABS: INR - (THERAPEUTIC) 1.7 (0.9-1.1); PROTIME 18.8 SECONDS (9.6-11.1)
[2016-05-21 22:49] LABS: ALBUMIN 3.1 gm/dL (3.5-5.0); CALCIUM 7.9 mg/dL (8.5-10.5); CREATININE 3.2 mg/dL (0.6-1.3)
[2016-05-21 22:51] LABS: MAGNESIUM 2.3 mg/dL (1.3-2.6); TOTAL BILIRUBIN 1.5 mg/dL (0.0-1.5); TOTAL PROTEIN 4.8 g/dL (6.0-8.4)
[2016-05-21 23:14] LABS: BANDED NEUTROPHIL # 0.4 K/uL (0.0-0.1); BANDED NEUTROPHILS % 4 %; LYMPHOCYTE # 0.4 K/uL (0.8-4.0); LYMPHOCYTE % 5 %
[2016-05-21 23:15] LABS: ABSOLUTE NEUTROPHIL CT (ANC) 7.5 K/uL (1.4-9.0); MONOCYTE # 0.9 K/uL (0.0-1.0); SEGMENTED NEUTROPHIL # 7.1 K/uL (1.4-9.0); SEGMENTED NEUTROPHIL % 81 %
--- NOTE | 2016-05-21 23:22 | NUR ---
Patient intubated around 21:30 due to increased O2 needs and work of breathing. Patient was intubated with an 8.0 ETT without difficulty. ETT was secured with an ETAD at 25cm at the lip. Intial ETCO2 was 43. After about 15 minutes on the ventilator the patient unfortunately was a CODE BLUE. Patient coded a total of 2 times. The last CODE BLUE was called at 22:32. 8
== END 2016-05-21 22:32 | disposition expired | DRG 265 ==
LOC: GSDC 12:41 → GPCU 12:41 → GICU 19:27 → GSDC 19:28 → GICU 19:28
PROVIDERS: Internal Medicine Nephrology; Nurse Practitioner; ADMIT Thoracic Surgery (Cardiothoracic Vascular Surgery)
DX: I25.5 Ischemic cardiomyopathy (principal); I26.99 Other pulmonary embolism without acute cor pulmonale; R57.9 Shock, unspecified; I13.2 Hypertensive heart and chronic kidney disease with heart failure and with stage 5 chronic kidney disease, or end stage renal disease; I47.2 Ventricular tachycardia; N18.6 End stage renal disease; E87.2 Acidosis; I42.9 Cardiomyopathy, unspecified; R04.2 Hemoptysis; I47.1 Supraventricular tachycardia; E11.22 Type 2 diabetes mellitus with diabetic chronic kidney disease; I48.2 Chronic atrial fibrillation; I25.10 Atherosclerotic heart disease of native coronary artery without angina pectoris; I50.9 Heart failure, unspecified; Z99.2 Dependence on renal dialysis; J44.9 Chronic obstructive pulmonary disease, unspecified; Z79.01 Long term (current) use of anticoagulants; E78.5 Hyperlipidemia, unspecified; Z95.1 Presence of aortocoronary bypass graft; Z95.810 Presence of automatic (implantable) cardiac defibrillator; Z95.5 Presence of coronary angioplasty implant and graft; Z87.891 Personal history of nicotine dependence; Z86.711 Personal history of pulmonary embolism; Z83.3 Family history of diabetes mellitus; Z82.49 Family history of ischemic heart disease and other diseases of the circulatory system; K21.9 Gastro-esophageal reflux disease without esophagitis; Z85.828 Personal history of other malignant neoplasm of skin; Z79.02 Long term (current) use of antithrombotics/antiplatelets; Z79.82 Long term (current) use of aspirin; Z79.4 Long term (current) use of insulin; E66.9 Obesity, unspecified; Z68.30 Body mass index [BMI] 30.0-30.9, adult; E87.5 Hyperkalemia; D64.9 Anemia, unspecified
CPT/HCPCS: C1751; C1898; J0171; J0282; J1756; J2270; J2370; J2704; J2930; J7030; J7050; J7060; P9045; P9047